=== PATIENT | female | born 1965 | race Caucasian/White ===

== ENCOUNTER → 2024-06-24 | Outpatient (CLI) | payer OTHER ==
--- NOTE | 2024-06-25 18:04 | MM ---
Reason for Exam: Screening (asymptomatic). Baseline mammogram. Patient History: Menarche at age 13. First Full-Term at age 30. Late child-bearing (after 30). Postmenopausal. Patient used Hormonal Contraceptives for 10 years. Sister had breast cancer. Risk Values: Polly 5 year model risk: 2.7%. NCI Lifetime model risk: 14.9%. Prior Study Comparison: Patient's first Mammogram. Tissue Density: There are scattered areas of fibroglandular density. Findings: Analyzed By CAD. Focal asymmetry anterior upper outer quadrant central right breast incompletely disperses on 3-D images. This may represent superimposition shadow but further evaluation is recommended. On the left, asymmetric density superior left MLO view for which further evaluation is recommended. Small reniform-shaped nodule low density medial left breast typical of intramammary lymph node. No suspicious microcalcification or discrete abnormality is seen. Overall Assessment: Incomplete: need additional imaging evaluation, BI-RAD 0 Management: Special View Mammogram of both breasts. Diagnostic Breast Ultrasound of both breasts. [facility] will attempt to contact patient to return for supplemental views and ultrasound if indicated. [facility], , 06/25/2024 6:01 PM. Electronically signed and approved by: Irene Neri M.D. Radiologist
== END | disposition home or self-care (01) ==
LOC: RADMAMWWP 08:54
PROVIDERS: ATTEND Family Medicine
DX: Z12.31 Encounter for screening mammogram for malignant neoplasm of breast (principal); R92.323 Mammographic fibroglandular density, bilateral breasts; Z78.0 Asymptomatic menopausal state; Z80.3 Family history of malignant neoplasm of breast; Z92.0 Personal history of contraception
CPT/HCPCS: 77063; 77067

== ENCOUNTER 2024-06-28 08:18 | Day surgery (SDC) | payer OTHER ==
[2024-06-28 08:36] VITALS: RESP 16; TEMP 97
[2024-06-28] MEDS: LACTATED RINGERS 1,000 ML IV SCH (08:40)
[2024-06-28] MEDS: IV FLUID CONTINUATION 1,000 ML IV ONE (08:40)
[2024-06-28] MEDS ORDERED: PROPOFOL 10 MG/ML 20 ML VIAL IV ONE (08:42)
--- NOTE | 2024-06-28 09:07 | P.PCN ---
Date of Procedure: 06/28/24 Preoperative Diagnosis: Screening History of hemorrhoids Postoperative Diagnosis: Ascending colon polyp Internal/external hemorrhoids Procedure(s) Performed: Colonoscopy with forcep polypectomy Anesthesia: MAC Surgeon: Cyndy Fritz Pathology: other (Ascending colon polyp) Condition: stable Disposition: same day Indications for Procedure: 58-year-old female presents today for screening colonoscopy. She denies any blood in her stool. Denies any family history of colon cancer. She states that she has had pain and itching secondary to hemorrhoids. Plan for colonoscopy. Risks, benefits and alternatives presented to the patient. Operative Findings: Ascending colon polyp Internal hemorrhoids, external hemorrhoids Description of Procedure: The patient was brought to the endoscopy suite and placed in left lateral decubitus position and adequate sedation was achieved using conscious sedation. Digital rectal exam was performed and mild internal hemorrhoids were palpated. External hemorrhoids were also noted on exam. An endoscope was then placed in the rectum and advanced to the cecum as identified by landmarks including the appendiceal orifice and the ileocecal valve. The prep was good. The colonoscope was then slowly withdrawn, examining for any mucosal abnormalities. The cecum, ascending, transverse, descending and sigmoid colon were visualized adequately. There were no large neoplastic lesions noted throughout the colon. A small polyp was noted in the ascending colon. This was removed with forcep polypectomy. No other significant findings noted. Hemostasis was maintained. Retroflexion was performed in the rectum and internal hemorrhoids. Excess air was removed, the colonoscope withdrawn and the procedure terminated. The patient was then transferred to the recovery unit in stable condition. Repeat colonoscopy should be performed in 5 years.
[2024-06-28 09:37] VITALS: BP 131/74; PULSE 81
== END 2024-06-28 09:43 | disposition home or self-care (01) ==
LOC: ORWHC2ENDO 08:18
PROVIDERS: ATTEND Surgery
DX: Z12.11 Encounter for screening for malignant neoplasm of colon (principal); K63.5 Polyp of colon; K64.4 Residual hemorrhoidal skin tags; K64.8 Other hemorrhoids; I10 Essential (primary) hypertension; F41.9 Anxiety disorder, unspecified; I73.9 Peripheral vascular disease, unspecified; F12.90 Cannabis use, unspecified, uncomplicated; Z79.899 Other long term (current) drug therapy; Z88.0 Allergy status to penicillin; Z90.49 Acquired absence of other specified parts of digestive tract
CPT/HCPCS: 88305; 45380; J2704

== ENCOUNTER → 2024-07-05 | Outpatient (CLI) | payer OTHER ==
--- NOTE | 2024-07-05 09:41 | USB ---
Reason for Exam: Follow-up at short interval from prior study. Patient History: Menarche at age 13. First Full-Term at age 30. Late child-bearing (after 30). Postmenopausal. Patient used Hormonal Contraceptives for 10 years. Sister had breast cancer. Risk Values: Polly 5 year model risk: 2.7%. NCI Lifetime model risk: 14.9%. Technique: Method: Targeted. Prior Study Comparison: 06/24/2024 Bilateral MG 3D screening mammo w/cad, [facility]. Findings: The upper outer quadrant of both breasts, the axilla of both breasts and the retroareolar of both breasts were scanned. Right breast: 2 small hypoechoic lesions are noted at the right 10:00 position 5 cm from the nipple measuring 0.45 cm and 0.3 cm respectively. Internal echoes are noted. Six-month follow-up advised. Left breast: There appears to be a cluster of cysts at the left breast 1:00 position 8 cm from the nipple measuring 1.7 x 0.5 cm. Six-month follow-up advised. No solid mass is detected. Overall Assessment: Probably benign, BI-RAD 3 Management: Diagnostic Breast Ultrasound of both breasts in 6 months. A clinical breast exam by your physician is recommended on an annual basis and results should be correlated with mammographic findings. This exam should not preclude additional follow-up of suspicious palpable abnormalities. Results were given to the patient verbally at the time of exam. [facility], , 07/05/2024 9:36 AM. Electronically signed and approved by: Abdullahi Romero M.D. Radiologis
== END | disposition home or self-care (01) ==
LOC: RADMAMWWP 08:35
PROVIDERS: ATTEND Family Medicine
DX: R92.8 Other abnormal and inconclusive findings on diagnostic imaging of breast (principal)
CPT/HCPCS: 77066; 76642; G0279; 77062

== ENCOUNTER → 2025-01-17 | Outpatient (CLI) | payer OTHER ==
--- NOTE | 2025-01-17 10:35 | USB ---
Reason for Exam: Additional evaluation requested from prior study. Patient History: Menarche at age 13. First Full-Term at age 30. Late child-bearing (after 30). Postmenopausal. Patient used Hormonal Contraceptives for 10 years. Sister had breast cancer. Risk Values: Polly 5 year model risk: 2.8%. NCI Lifetime model risk: 14.6%. Technique: Method: Targeted. Prior Study Comparison: 06/24/2024 Bilateral MG 3D screening mammo w/cad, [facility]. 07/05/2024 Bilateral MG 3D work up w/cad [facility], [facility]. Findings: The lateral section of the breast of both breasts, the axilla of both breasts and the retroareolar of both breasts were scanned. Right: Targeted ultrasound upper outer quadrant 9:00 to 12:00 including scanning of the subareolar region and axilla. At the 10:00 position, 5 cm from the nipple, there is a 4 mm benign cyst at the previous cyst cluster. No other solid or cystic lesion or axillary adenopathy. Left: Targeted ultrasound upper outer quadrant 12:00 to 3:00 including scanning of the subareolar region and axilla. At the 1:00 position, 8 cm from the nipple, there is a 4 mm benign cyst, decreased in size at the site of previous suspected fibrocystic change. No other solid or cystic lesion or axillary adenopathy. Overall Assessment: Probably benign, BI-RAD 3 Management: Diagnostic Mammogram of both breasts in 6 months. Total one-year follow-up of the bilateral mammographic findings, in time for the patient's annual exam. A clinical breast exam by your physician is recommended on an annual basis and results should be correlated with mammographic findings. This exam should not preclude additional follow-up of suspicious palpable abnormalities. Results were given to the patient verbally at the time of exam. [facility], , 01/17/2025 10:32 AM. Electronically signed and approved by: Irene Neri M.D. Radiologist
== END | disposition home or self-care (01) ==
LOC: RADMAMWWP 07:52
PROVIDERS: ATTEND Family Medicine
DX: R92.0 Mammographic microcalcification found on diagnostic imaging of breast (principal); N60.01 Solitary cyst of right breast; N60.02 Solitary cyst of left breast; Z78.0 Asymptomatic menopausal state; Z80.3 Family history of malignant neoplasm of breast; Z92.0 Personal history of contraception